=== PATIENT | female | born 1970 | race Two or more races ===

== ENCOUNTER 2018-09-14 00:30 | Emergency (ER) | payer SELFPAY ==
[~2018-09-14] VITALS: Ht 165.1 cm; Wt 68.0 kg
[2018-09-14 00:30] VITALS: BP 150/87
[2018-09-14] MEDS ORDERED: IBUPROFEN 400 MG TABLET PO ONE (02:30)
--- NOTE | 2018-09-14 02:45 | NUR ---
PT HAS DECIDED SHE NO LONGER WISHES TO BE SEEN BY AN MD, STATES SHE WILL FOLLOW UP W/ HER PCP.
--- NOTE | 2018-09-14 02:46 | NUR ---
PT LWBS BY .
== END 2018-09-14 03:00 | disposition left against medical advice (07) ==
LOC: ER 00:32
DX: Z53.21 Procedure and treatment not carried out due to patient leaving prior to being seen by health care provider (principal); M25.511 Pain in right shoulder; I10 Essential (primary) hypertension; J45.909 Unspecified asthma, uncomplicated
CPT/HCPCS: A4606; Z7610